=== PATIENT | male | born 1985 | race Caucasian/White ===

== ENCOUNTER 2016-12-13 16:45 | Emergency (ER) | payer OTHER ==
[~2016-12-13] VITALS: Ht 172.7 cm; Wt 61.4 kg
[2016-12-13 16:47] VITALS: BP 125/79; PULSE 76; RESP 14; TEMP 97.6; O2SAT 99
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
[2016-12-13] MEDS ORDERED: ORPH100T99 PO (17:56)
[2016-12-13] MEDS ORDERED: IBUP-232 PO (17:56)
== END 2016-12-13 18:20 | disposition home or self-care (01) ==
LOC: NEPB 16:45
DX: M54.5 Low back pain (principal)
CPT/HCPCS: 99283